=== PATIENT | female | born 1970 | race Caucasian/White ===

== ENCOUNTER 2017-12-17 16:11 | Emergency (ER) | payer OTHER ==
[2017-12-18 02:19] LABS: ABNORMAL IP MESSAGE 1; HEMATOCRIT 23.7 % (37.0-47.0); MEAN CORPUSCULAR HEMOGLOBIN 16.8 pg (29.0-33.0); MEAN CORPUSCULAR VOLUME 62.2 fl (82.0-101.0); MEAN PLATELET VOLUME 9.3 fl (7.4-10.4); PLATELET COUNT 325 10^3/UL (140-415); RED BLOOD COUNT 3.81 10^6/ul (4.20-5.40)
[2017-12-18 02:19] LABS: WHITE BLOOD COUNT 6.1 10^3/ul (4.8-10.8)
[2017-12-18 02:29] LABS: HEMOGLOBIN 6.4 g/dl (12.0-16.0); POSITIVE DIFF @See below
[2017-12-18 02:30] LABS: ADD MAN DIFF? YES; PATH REVIEW? YES
[2017-12-18 04:06] LABS: ANISOCYTOSIS 3+ (0-0); BASOPHILS % (M) 1 % (0-2); EOSINOPHILS % (M) 7 % (0-7); GIANT THROMBO% (M) 3 % (0-0); HYPOCHROMASIA 3+ (0-0); LYMPHOCYTES % (M) 33 % (15-51); MICROCYTOSIS 3+ (0-0); MONOCYTE #M 0.5 10^3/ul (0.3-0.9); MONOCYTES % (M) 9 % (0-11); PLATELET ESTIMATE NORMAL; PLATELET MORPHOLOGY COMMENT @See below; POIKILOCYTOSIS 3+ (0-0); POLYCHROMASIA 3+ (0-0); SEGMENTED NEUTROPHILS (M) % 50 % (39-77)
[2017-12-18] MEDS ORDERED: DOCUSATE SODIUM 100 MG CAP PO (05:30)
[2017-12-18] MEDS ORDERED: BISACODYL (EC) 5 MG TAB PO (05:30)
[2017-12-18] MEDS ORDERED: ACETAMINOPHEN 325 MG TAB PO (05:30)
[2017-12-18] MEDS ORDERED: NACL 0.9% 3 ML SYG IV (05:30)
[2017-12-18] MEDS ORDERED: ONDANSETRON 4 MG INJ IV (05:30)
[2017-12-18 07:38] LABS: IMMEDIATE SPIN CROSSMATCH 1 4
[2017-12-18 10:57] LABS: ADD MAN DIFF? NO
[2017-12-18 10:59] LABS: WHITE BLOOD COUNT 5.6 10^3/ul (4.8-10.8)
[2017-12-18 10:59] LABS: ABNORMAL IP MESSAGE 1; BASOPHIL # 0.1 10^3/ul (0.0-0.1); BASOPHILS % 1.4 % (0.0-2.0); EOSINOPHILS # 0.6 10^3/ul (0.0-0.5); HEMATOCRIT 30.1 % (37.0-47.0); HEMOGLOBIN 8.8 g/dl (12.0-16.0); LYMPHOCYTES # 1.4 10^3/ul (0.8-2.9); LYMPHOCYTES % 25.6 % (15.0-51.0); MEAN CORPUSCULAR HGB CONC 29.2 g/dl (32.0-37.0); MEAN CORPUSCULAR VOLUME 68.4 fl (82.0-101.0); MEAN PLATELET VOLUME 9.7 fl (7.4-10.4); MONOCYTE # 0.8 10^3/ul (0.3-0.9); MONOCYTES % 14.8 % (0.0-11.0); NEUTROPHIL # 2.7 10^3/ul (1.6-7.5); PLATELET COUNT 307 10^3/UL (140-415); RED CELL DISTRIBUTION WIDTH 25.2 % (11.5-14.5)
[2017-12-18 11:05] LABS: POSITIVE DIFF @See below
== END 2017-12-18 14:11 | disposition home or self-care (01) ==
LOC: E/R 12-18 14:11 → FTE 16:11 → E/R 12-18 14:11
DX: D64.9 Anemia, unspecified (principal); R40.2142 Coma scale, eyes open, spontaneous, at arrival to emergency department; R40.2252 Coma scale, best verbal response, oriented, at arrival to emergency department; R40.2362 Coma scale, best motor response, obeys commands, at arrival to emergency department
CPT/HCPCS: 36415; 36430; 85025; 86850; 86900; 86901; 86920; 99285-25